=== PATIENT | male | born 1965 | race Caucasian/White ===

== ENCOUNTER 2019-09-03 23:31 | Emergency (ER) | payer SELFPAY ==
--- NOTE | 2019-09-03 23:37 | ED.URI ---
HPI - URI/Sore Throat General Chief Complaint: Upper Respiratory Infection Stated Complaint: sick Source: patient Mode of arrival: ambulatory Limitations: no limitations History of Present Illness HPI Narrative: Three day ago had soreness and felt swelling inside his throat (points to his trachea). In the last day that has improved but now he has congestion in his head, worse this evening. He's concerned this will get worse and then start to affect his COPD. The thought of this make's him anxious. He sparingly takes Xanax. Current bottle has lasted him since February with several tabs remaining. MD elicited complaint: cough and rhinorrhea Pertinent past history: COPD (exacerbation) Exacerbating factors: nothing Relieving factors: nothing Related Data Home Medications Medication Instructions Recorded Confirmed albuterol sulfate 2.5 mg CONTINUOUS NEBULIZATION PRN 09/03/19 09/03/19 PRN albuterol sulfate [Ventolin HFA] 2 puff INHALATION PRN PRN 09/03/19 09/03/19 alprazolam 0.25 mg PO PRN PRN 09/03/19 09/03/19 lisinopril-hydrochlorothiazide 2 tablet PO DAILY 09/03/19 09/03/19 Allergies Allergy/AdvReac Type Severity Reaction Status Date / Time No Known Allergies Allergy Verified 09/04/19 00:08 Review of Systems Constitutional: Constitutional: Reports no additional constitutional complaints ENT: Denies dysphagia Cardiovascular: Cardiovascular: Denies chest pain Respiratory: Respiratory: Denies dyspnea Gastrointestinal: Gastrointestinal: Denies abdominal pain PMFSH Past Medical History Medical History Arthritis of knee Cervical stenosis of spinal canal Hypertension Social History Social History Substance use: current Substance use type: marijuana Exam Narrative: Exam Narrative: Anxious, seems to prefer to stand. Const: General: no acute distress Orientation/consciousness: patient oriented x3 HENMT: General nose exam: Normal external nose present, Normal nares present and no nasal discharge noted Face and sinus: no sinus tenderness Mouth: Yes moist mucous membranes Other: Audible air flow constriction out of each nostril with inhalation Eyes: Conjunctivae: conjunctivae normal Neck: Neck: no lymphadenopathy Other: minor anterior neck tenderness. Resp: Auscultation: clear to auscultation bilaterally Cardio: Rate: regular rate Rhythm: regular rhythm Course Course Emergency Course: Pt. given assured his COPD is stable. Vital Signs Vital signs: Vital Signs Temperature 36.6 C 09/03/19 23:45 Pulse Rate 72 09/03/19 23:45 Respiratory Rate 09/03/19 23:45 Blood Pressure 145/85 H 09/03/19 23:45 Pulse Oximetry 98 09/03/19 23:45 Temperature 36.6 C 09/03/19 23:45 Pulse Rate 72 09/03/19 23:45 Respiratory Rate 09/03/19 23:45 Blood Pressure 145/85 H 09/03/19 23:45 Pulse Oximetry 98 09/03/19 23:45 MDM - URI/Sore Throat MDM Narrative Medical decision making narrative: Lower tracheal swelling by hx 3 days go. This has improved. This evening having head congestion which have elicited anxiety over having trouble breathing, exacerbation of COPD. Pt. assured there is no evidence of problems with COPD. [place] last [place] Xan[place] 02/2019 for 20 tablets. Given lorazepam 0.5 mg with #6 Xanax 0.25 tablets to get him to his appt. with his PCP in 5 days. Differential Diagnosis Differential diagnosis: Likely upper respiratory infection and other (anxiety) Discharge Plan Discharge Clinical Impression: Anxiety Upper respiratory infection Qualifiers: URI type: unspecified URI Qualified Code(s): J06.9 - Acute upper respiratory infection, unspecified Patient Disposition: Home, Self-Care Condition: Stable Instructions: Sinusitis (ED), Upper Respiratory Infection (ED) Additional Instructions: Irrigate sinuses with saline sinus
[2019-09-03 23:45] VITALS: BP 145/85; PULSE 72; RESP 20; TEMP 36.6; O2SAT 98
[2019-09-04] MEDS: LORAZEPAM 0.5 MG TABLET PO (00:11)
[2019-09-04 00:13] VITALS: BP 140/82; PULSE 88; RESP 18; O2SAT 98
== END 2019-09-04 00:15 | disposition home or self-care (01) ==
PROVIDERS: Emergency Provider Family Medicine; PCP Internal Medicine
DX: F41.9 Anxiety disorder, unspecified (principal); J06.9 Acute upper respiratory infection, unspecified
CPT/HCPCS: 99283; A9270

== ENCOUNTER → 2020-10-05 00:21 | Outpatient (CLI) | payer MEDICARE, SELFPAY ==
[2020-10-05 17:44] LABS: SARS-CoV-2 RNA PCR Negative
== END ==
PROVIDERS: PCP Family Medicine; Visit Provider Internal Medicine Gastroenterology
DX: Z01.812 Encounter for preprocedural laboratory examination (principal); Z20.822 Contact with and (suspected) exposure to COVID-19
CPT/HCPCS: C9803; U0003; U0005

== ENCOUNTER 2020-10-08 01:25 | Day surgery (SDC) | payer MEDICARE, SELFPAY ==
[2020-10-03 10:19] VITALS: BMI 26.6
[2020-10-08 10:05] VITALS: BP 126/80; PULSE 66; RESP 18; TEMP 37; O2SAT 99; BMI 27.2
[2020-10-08] MEDS: LACTATED RINGERS 1,000 ML 150 ML IV CONT (10:15)
--- NOTE | 2020-10-08 10:26 | WPDANESEPPF ---
Anes - Initial Pre Proc Eval Procedure: Operation Date: 10/08/20 10:45 Proposed Procedures p Esophagogastroduodenoscopy & Colonoscopy - Guilherme Strong MD Date/Time: 10/08/20 10:26 Surgeon: Guilherme Strong MD Pre Op Diagnosis: Hx of colon polyps, GERD Patient Data Age: 54 Gender: M Height: 5 ft 7 in Weight: 78.9 kg Last Vital Signs Temp 98.6 F 10/08/20 10:05 Pulse 66 10/08/20 10:05 Resp 18 10/08/20 10:05 BP 126/80 10/08/20 10:05 Pulse Ox 99 10/08/20 10:05 Allergies Allergy/AdvReac Type Severity Reaction Status Date / Time citalopram Allergy Severe panic Verified 10/08/20 10:04 attack Home Medications Medication Instructions Recorded Confirmed Type lisinopril 10 2 tablet PO DAILY #180 tablet 07/02/20 10/03/20 Rx mg-hydrochlorothiazide 12.5 mg tablet alprazolam 0.25 mg tablet 0.25 mg PO TID PRN #20 tablet 08/21/20 10/03/20 Rx albuterol sulfate 90 mcg/actuation 1 inh INHALATION Q4H PRN #8.5 g 09/26/20 10/03/20 Rx aerosol inhaler pantoprazole 40 mg tablet,delayed 40 mg PO QAM #30 tablet 10/03/20 10/08/20 Rx release Patient hx anesthesia problems: none Family hx anesthesia problems: none PMFSH Past Medical History Medical History (Updated 09/27/20 @ 09:30 by Guilherme Strong MD) Adenomatous colon polyp Arthritis of knee Cervical stenosis of spinal canal COPD (chronic obstructive pulmonary disease) Early satiety PADDY (generalized anxiety disorder) Hypertension Surgical History Surgical History H/O hernia repair History of throat surgery Family History Family History Father Lymphoma Social History Social History Smoking status: Never smoker Alcohol intake: current Substance use: current Substance use type: marijuana Other substance usage details: MEDICAL CARD- Living arrangements: with family 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 Spiritual care concerns: No Anes - Eval Final PreProcedure Day of Procedure 10/08/20 10:26 Patient weight: normal Heart: regular rate and rhythm Lungs: clear to auscultation Airway: Mallampati scale class II Neurological: alert and oriented Last oral intake: >/= 8 hours ASA classification: III Emergent: no Anesthetic plan: proceed Anesthesia type and monitoring: general GIVS and standard monitoring Informed Consent: The patient's anesthetic plan and its attendant risks and benefits were discussed with the patient/family/POA. Questions were solicited and answers provided to the satisfaction of the patient/family/POA.
--- NOTE | 2020-10-08 10:32 | WPDHPUPDATE1 ---
History and Physical Update Update Date/Time: 10/08/20 10:32 History and Physical has been reviewed, including an updated exam of the patient. There are NO changes in the patient's condition. Risks, benefits, and alternatives have been discussed and questions answered. Patient agrees to proceed with procedure.
[2020-10-08 11:21] VITALS: BP 98/64; PULSE 65; RESP 19; O2SAT 99
--- NOTE | 2020-10-08 11:22 | SUR.OPER ---
EGD START 1040, END 1044 COLONOSCOPY START 1050, END 1118
[2020-10-08 11:31] VITALS: BP 101/75; PULSE 65; RESP 18; O2SAT 98
[2020-10-08 11:41] VITALS: BP 136/67; PULSE 71; RESP 18; O2SAT 99
== END 2020-10-08 11:52 | disposition home or self-care (01) ==
PROVIDERS: PCP Family Medicine; Visit Provider Internal Medicine Gastroenterology
PROC: 0DJ08ZZ Inspection of Upper Intestinal Tract, Via Natural or Artificial Opening Endoscopic (ICD-10-PCS; CPT 43235; principal; 2020-10-08 10:45)
DX: Z12.11 Encounter for screening for malignant neoplasm of colon (principal); D12.0 Benign neoplasm of cecum; D12.3 Benign neoplasm of transverse colon; K63.5 Polyp of colon; K57.30 Diverticulosis of large intestine without perforation or abscess without bleeding; K64.8 Other hemorrhoids; K30 Functional dyspepsia; R14.0 Abdominal distension (gaseous); K44.9 Diaphragmatic hernia without obstruction or gangrene; K29.50 Unspecified chronic gastritis without bleeding; B96.81 Helicobacter pylori [H. pylori] as the cause of diseases classified elsewhere; K21.9 Gastro-esophageal reflux disease without esophagitis; R10.11 Right upper quadrant pain; R68.81 Early satiety
CPT/HCPCS: 45385; 45381; 43239; 88305; 88342; J2704; J7120

== ENCOUNTER 2020-11-07 13:59 | Outpatient (CLI) | payer MEDICARE, SELFPAY ==
[2020-11-10 15:40] LABS: H pylori Ag Stool Not Detected (Not Detected)
== END 2020-11-07 14:00 | disposition home or self-care (01) ==
LOC: CHSLAB 14:01
PROVIDERS: PCP Family Medicine; Visit Provider Nurse Practitioner Family
DX: A04.8 Other specified bacterial intestinal infections (principal)
CPT/HCPCS: 87338

== ENCOUNTER 2022-08-25 09:35 | Outpatient (RCR) | payer MEDICARE, SELFPAY ==
--- NOTE | 2022-08-25 09:42 | PTOPEVAL1 ---
Assessment and note entered by [facility]as Hand Evaluation Information Assessment Status Evaluation Diagnosis left MADAI Onset 08/04/22 Subjective Information Pt. reports that he underwent left MADAI on 08/04/22. He reports that he fell shortly after surgery, but underwent xray and everything was ok with the hip. He reports that he still has difficulty with putting on a sock and tying his shoe. He reports that he has some pain with walking, but it is mild. He reports that he does have a lot of stiffness after getting up in the morning. He states that he has returned to driving and is no longer using his cane. He reports that he was active before surgery. 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 He reports that his goal is to be able to walk normal. Reported Pain Level Pain Score 2: Self Report Assessment PT Clinical Summary Pt. is a 56 year old male who enters the clinic approximately 3-4 weeks post left MADAI. He presents with impaired ROM, impaired strength, impaired gait and functional decline. Continued treatment is indicated in order to improve these areas to allow for improved IADL performance. Plan of Care Interventions Gait Training,Manual Therapy,Neuro Re-education, Patient/Caregiver Educati,Therapeutic Activities, Therapeutic Exercise Treatment Frequency and 2x/week x 8 visits Duration These treatments will address the objective and functional deficits as defined above. The patient will be advanced safely and appropriately in order for the patient to progress towards his/her prior level of function. Additional exercises will be introduced and as well as a comprehensive home exercise program upon discharge, if needed, ?to ensure carryover of functional gains achieved in the clinic. This treatment plan has been reviewed and agreement upon by the patient.
== END 2022-08-25 17:23 | disposition home or self-care (01) ==
LOC: CHSPT 09:35
PROVIDERS: Visit Provider Orthopaedic Surgery
DX: Z47.1 Aftercare following joint replacement surgery (principal); M16.32 Unilateral osteoarthritis resulting from hip dysplasia, left hip; Z96.642 Presence of left artificial hip joint
CPT/HCPCS: 97110; 97161

== ENCOUNTER 2023-04-03 | Emergency (ER) | payer MEDICARE, SELFPAY ==
[2023-04-03 00:02] VITALS: BP 120/64; PULSE 70; RESP 20; O2SAT 100
--- NOTE | 2023-04-03 00:12 | ED.UPPEXIN ---
HPI - Extremity Injury (Upper) General Chief Complaint: Extremity Injury, Upper Stated Complaint: Upper Extremity Time Seen by Provider: 04/03/23 00:10 Source: patient Mode of arrival: ambulatory Limitations: no limitations History of Present Illness HPI narrative: 57-year-old male who presents with warm tender red right thumb, with no known injury started approximately a day or 2 ago and no fever chills no shortness of breath no chest pain no nausea vomiting. complaint: injury to: right and hand Onset (ago): day(s) Other Extremity Injury: Right: fingers ( thumb tenderness warmth and redness) Related Data Allergies Allergy/AdvReac Type Severity Reaction Status Date / Time citalopram Allergy Severe panic Verified 10/30/22 07:07 attack Review of Systems Review of Systems: All systems reviewed & are unremarkable except as noted in HPI and below PMFSH Past Medical History Medical History Adenomatous colon polyp Arthritis of knee Cervical stenosis of spinal canal COPD (chronic obstructive pulmonary disease) Early satiety PADDY (generalized anxiety disorder) Helicobacter pylori (H. pylori) Hypertension Surgical History Surgical History H/O hernia repair History of throat surgery Family History Family History Father Lymphoma Social History Social History Smoking status: Never smoker Alcohol intake: current Alcohol use details: Social use only. 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 care concerns: No Exam Const: General: healthy appearing Nutritional Appearance: well nourished Orientation/consciousness: patient oriented x3 Limitations: no limitations Neck: Neck: normal visual inspection and no lymphadenopathy Chest: Chest palpation & inspection: normal inspection of the chest Resp: Effort & Inspection: normal respiratory effort Auscultation: clear to auscultation bilaterally Cardio: Rate: regular rate Rhythm: regular rhythm GI: GI Palp: Yes Soft to palpation Back/Spine/Pelvis: Back: no CVA tenderness Skin: General skin exam: normal color Other: Warm tender and red erythematous right thumb no known injury a strong brisk radial pulse on the right with mild swelling Extrem: General: normal to inspection Psych: Mental Status: mental status grossly normal Affect: normal affect Course Course Emergency Course: patient received a dose of 60mg IM Toradol Reassessment of patient, pain level has improved advised patient to follow with his primary. Vital Signs Vital signs: Vital Signs Pulse Rate 70 04/03/23 00:02 Respiratory Rate 20 04/03/23 00:02 Blood Pressure 120/64 04/03/23 00:02 Pulse Oximetry 100 04/03/23 00:02 Oxygen Delivery Room Air 04/03/23 00:02 Pulse Rate 70 04/03/23 00:02 Respiratory Rate 20 04/03/23 00:02 Blood Pressure 120/64 04/03/23 00:02 Pulse Oximetry 100 04/03/23 00:02 Oxygen Delivery Room Air 04/03/23 00:02 Critical Care Time Critical Care Time Critical Care Time: No Discharge Plan Discharge Clinical Impression: Gout attack Qualifiers: Gout site: hand Gout etiology: unspecified cause Laterality: right Qualified Code(s): M10.9 - Gout, unspecified Patient Disposition: Home, Self-Care Condition: Stable Instructions: Antibiotic Form, Gout (ED) Additional Instructions: advised patient to take medicine as prescribed and to follow up with primary within the next 2 weeks further evaluation treatment. Prescriptions: New indomethacin 50 mg capsule
[2023-04-03] MEDS: KETOROLAC (*BKC) 60 MG/2 ML VIAL IM (00:30)
== END 2023-04-03 00:40 | disposition home or self-care (01) ==
PROVIDERS: Emergency Provider Emergency Medicine; PCP Family Medicine
DX: M10.9 Gout, unspecified (principal); J44.9 Chronic obstructive pulmonary disease, unspecified; I10 Essential (primary) hypertension
CPT/HCPCS: 96372; 99283; J1885

== ENCOUNTER 2023-05-15 19:52 | Emergency (ER) | payer MEDICARE, SELFPAY ==
--- NOTE | ~2023-05-15 | XR_ITS ---
XR wrist RT min 3V 05/15/2023 21:29 Indication: Right wrist pain Procedure: 4 views right wrist Comparison: No prior studies for comparison. Findings: There is an old healed scaphoid fracture. There is loose body lateral to the scaphoid. Ther e is an older ulnar styloid avulsion fracture. There is widening of the scapholunate distance hips. T here is polyarticular osteoarthritis of the carpal bones. No acute fracture or traumatic malalignment . Impression: 1: No acute bone or joint abnormality. Reviewed, dictated and finalized at location A. Impression: 1: No acute bone or joint abnormality.
[2023-05-15 20:06] VITALS: BP 141/75; PULSE 78; RESP 20; TEMP 36.6; O2SAT 99
[2023-05-15] MEDS: KETOROLAC 30 MG/ML VIAL (*BKC) 60 MG IM (20:34)
--- NOTE | 2023-05-15 21:07 | ED.WOUNDLAC ---
HPI - Wound/Laceration General Chief Complaint: Wound/Laceration Stated Complaint: Gout in R arm Source: patient Mode of arrival: ambulatory Limitations: no limitations History of Present Illness HPI narrative: Patient is a 57-year-old male with right hand / wrist recurrent gout. He gets tophi in the right wrist. He was here about a month ago and did not fill the medication. He does not see a primary doctor for this problem. Onset (ago): day(s) (3) Extremity Location: Right: wrist Place: home Context: other ( Acute on chronic problem) Associated symptoms: pain Treatments prior to arrival: cold therapy Related Data Allergies Allergy/AdvReac Type Severity Reaction Status Date / Time citalopram Allergy Severe panic Verified 10/30/22 07:07 attack Review of Systems Review of Systems: All systems reviewed & are unremarkable except as noted in HPI and below Constitutional: Constitutional: Reports no additional constitutional complaints Eyes: Eyes: Reports no additional eye complaints ENT: Reports system reviewed and no additional complaints, except as documented Cardiovascular: Cardiovascular: Reports no additional cardiovascular complaints Respiratory: Respiratory: Reports no additional respiratory complaints Gastrointestinal: Gastrointestinal: Reports no additional gastrointestinal complaints Genitourinary: Genitourinary: Reports no additional male genitourinary complaints Musculoskeletal: Musculoskeletal: Reports no additional musculoskeletal complaints Integumentary/Breasts: Skin/Breast: Reports system reviewed and no additional complaints, except as docu Neurologic: Reports system reviewed and no additional complaints, except as documented Psychiatric: Psychiatric: Reports no additional psychiatric complaints Endocrine: Endocrine: Reports no additional endocrine complaints Hematologic/Lymphatic: Hematologic/Lymphatic: Reports no additional hematologic/lymphatic complaints Allergic/Immunologic: Allergic/Immunologic: Reports no additional allergic/immunologic complaints PMFSH Past Medical History Medical History Adenomatous colon polyp Arthritis of knee Cervical stenosis of spinal canal COPD (chronic obstructive pulmonary disease) Early satiety PADDY (generalized anxiety disorder) Helicobacter pylori (H. pylori) Hypertension Surgical History Surgical History H/O hernia repair History of throat surgery Family History Family History Father Lymphoma Social History Social History Smoking status: Never smoker Alcohol intake: current Alcohol use details: Social use only. 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 care concerns: No Exam Const: General: healthy appearing Nutritional Appearance: well nourished Orientation/consciousness: patient oriented x3 HENMT: Head: normal to inspection Ears: external ears normal Face/Nose/Sinus: Normal external nose present Eyes: Conjunctivae: conjunctivae normal Pupils: Equal, round and reactive pupils present EOM: EOMs intact bilaterally Neck: Neck: normal visual inspection Chest: Chest palpation & inspection: normal inspection of the chest Resp: Effort & Inspection: normal respiratory effort Auscultation: clear to auscultation bilaterally, no crackles, no rales and no rhonchi Cardio: Rate: regular rate Rhythm: regular rhythm Heart sounds: no murmurs GI: Inspection: non-distended GI Palp: Yes Soft to palpation, No Tenderness to palpation present (GI), No Guarding due to palpation present (GI) and
[2023-05-15] MEDS: COLCHICINE 0.6 MG TABLET 1.2 MG PO (21:14)
[2023-05-15 21:16] VITALS: BP 138/79; PULSE 70; RESP 18; O2SAT 97
== END 2023-05-15 21:47 | disposition home or self-care (01) ==
PROVIDERS: Emergency Provider Emergency Medicine; PCP Family Medicine
DX: M1A.9XX1 Chronic gout, unspecified, with tophus (tophi) (principal); M25.531 Pain in right wrist; J44.9 Chronic obstructive pulmonary disease, unspecified; I10 Essential (primary) hypertension; F41.1 Generalized anxiety disorder; F12.90 Cannabis use, unspecified, uncomplicated; Z79.51 Long term (current) use of inhaled steroids
CPT/HCPCS: 73110; 96372; 99283; A9270; J1885

== ENCOUNTER 2023-09-25 22:15 | Emergency (ER) | payer MEDICARE, SELFPAY ==
[2023-09-25 22:18] VITALS: BP 121/90; PULSE 69; RESP 18; TEMP 36.8; O2SAT 96
--- NOTE | 2023-09-25 22:26 | ED.GENADULT ---
HPI - General Adult General Chief complaint: Extremity Problem,Nontraumatic Stated complaint: hand pain Time Seen by Provider: 09/25/23 22:20 History of Present Illness HPI narrative: Florian presented to the ED with bilateral hand pain getting worse for a couple days. He has severe pain in his left wrist that is keeping him from using it. It is also keeping him awake all night. No fevers, chills, nausea vomiting or systemic symptoms. It feels like previous gout flares. Related Data Allergies Allergy/AdvReac Type Severity Reaction Status Date / Time citalopram Allergy Severe panic Verified 09/25/23 22:20 attack Review of Systems Review of Systems: All systems reviewed & are unremarkable except as noted in HPI and below PMFSH Past Medical History Medical History Adenomatous colon polyp Arthritis of knee Cervical stenosis of spinal canal COPD (chronic obstructive pulmonary disease) Early satiety PADDY (generalized anxiety disorder) Helicobacter pylori (H. pylori) Hypertension Surgical History Surgical History H/O hernia repair History of throat surgery Family History Family History Father Lymphoma Social History Social History Smoking status: Never smoker Alcohol intake: current Alcohol use details: Social use only. 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 care concerns: No Exam Const: General: cooperative, healthy appearing, comfortable, no acute distress, well developed, alert, awake and Physically active Orientation/consciousness: oriented to person, oriented to place and oriented to time HENMT: Head: normal to inspection, normocephalic and atraumatic Ears: hearing grossly normal bilaterally and external ears normal Face/Nose/Sinus: Normal external nose present Eyes: General: appearance normal, both eyes and all related structures Periorbital: periorbital findings normal Sclera: sclerae normal Pupils: Equal, round and reactive pupils present Neck: Neck: normal visual inspection Chest: Chest palpation & inspection: normal inspection of the chest Resp: Effort & Inspection: normal respiratory effort, able to speak in complete sentences and no respiratory distress Skin: General skin exam: normal color and no rashes or lesions noted Neuro: General: oriented to person, oriented to place and oriented to time Cranial nerves: Yes Equal, round and reactive pupils present Extrem: General: normal to inspection Other: both hands swollen and TTP bilaterally. Left wrist is the most severe. Course Course Emergency Course: Given toradol and prednisone. Physical exam, patients personal history is most consistent with a gout flare. Vital Signs Vital signs: Vital Signs Temperature 98.2 F 09/25/23 22:18 Pulse Rate 69 09/25/23 22:18 Respiratory Rate 18 09/25/23 22:18 Blood Pressure 121/90 09/25/23 22:18 Pulse Oximetry 96 09/25/23 22:18 Oxygen Delivery Room Air 09/25/23 22:18 Temperature 98.2 F 09/25/23 22:18 Pulse Rate 69 09/25/23 22:18 Respiratory Rate 18 09/25/23 22:18 Blood Pressure 121/90 09/25/23 22:18 Pulse Oximetry 96 09/25/23 22:18 Oxygen Delivery Room Air 09/25/23 22:18 Medical Decision Making Vital Signs Vital Signs: Vital Signs Temperature 98.2 F 09/25/23 22:18 Pulse Rate 69 09/25/23 22:18 Respiratory Rate 18 09/25/23 22:18 Blood Pressure 121/90 09/25/23 22:18 Pulse Oximetry 96 09/25/23 22:18 Oxygen Delivery Room Air 09/25/23 22:18 Temperature 98.2 F
[2023-09-25] MEDS: KETOROLAC 30 MG/ML VIAL (*BKC) IM (22:34)
[2023-09-25] MEDS: predniSONE 40 MG, predniSONE 10 MG 50 MG PO (22:34)
== END 2023-09-25 22:55 | disposition home or self-care (01) ==
LOC: CHSED 22:42
PROVIDERS: Emergency Provider Family Medicine; PCP Family Medicine
DX: M10.9 Gout, unspecified (principal); J44.9 Chronic obstructive pulmonary disease, unspecified; I10 Essential (primary) hypertension
CPT/HCPCS: 96372; 99283; J1885; J7512

== ENCOUNTER 2023-09-27 22:11 | Emergency (ER) | payer MEDICARE, SELFPAY ==
[2023-09-27 22:11] VITALS: BP 125/84; PULSE 74; RESP 20; TEMP 36.6; O2SAT 98
--- NOTE | 2023-09-27 22:24 | ED.GENADULT ---
HPI - General Adult General Chief complaint: Extremity Problem,Nontraumatic Stated complaint: hand pain Time Seen by Provider: 09/27/23 22:14 Source: patient Mode of arrival: ambulatory Limitations: no limitations History of Present Illness HPI narrative: 57-year-old white male with history of gout seen in the emergency room 3 days ago given Toradol and prednisone with a prescription for [place] and a decreasing doses of prednisone which he did not feel yesterday or today. He is here for another shot and some more prednisone complains of recurrence of his left wrist pain. Patient says that he quit alcohol about a year ago he has had attacks pretty much constantly for the last 8 months. He is on lisinopril hydrochlorothiazide. He has been to the emergency room before when he forgot the get his medicines filled. Says he is taking Naprosyn at home and did go out get his [place] and prednisone last 2 days. Complains of more pain in his left wrist denies any other joint pain. He is eating drinking voiding and stooling fine walking talking seeing hearing fine no other swelling besides his left wrist lumps or bumps dizziness or lightheadedness bleeding or bruising or any other complaints Related Data Allergies Allergy/AdvReac Type Severity Reaction Status Date / Time citalopram Allergy Severe panic Verified 09/27/23 22:26 attack Review of Systems Review of Systems: All systems reviewed & are unremarkable except as noted in HPI and below PMFSH Past Medical History Medical History Adenomatous colon polyp Arthritis of knee Cervical stenosis of spinal canal COPD (chronic obstructive pulmonary disease) Early satiety PADDY (generalized anxiety disorder) Helicobacter pylori (H. pylori) Hypertension Surgical History Surgical History H/O hernia repair History of throat surgery Family History Family History Father Lymphoma Social History Social History Smoking status: Never smoker Alcohol intake: current Alcohol use details: Social use only. 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 care concerns: No Exam Narrative: White male patient with no apparent distress.? Head normocephalic, atraumatic.? Eyes conjunctiva pink sclera nonicteric.? Extraocular movements are intact.? Ears externally normal.? Oropharynx is clear with moist mucous membranes without exudates.? Neck is supple nontender no lymphadenopathy.? Back is nontender.? Lungs are clear.? Heart is regular rate and rhythm without murmurs gallops or rubs.? Chest wall nontender.? Back is nontender. Abdomen is soft and nontender no hepatosplenomegaly or masses no CVA tenderness no abdominal bruits.? Extremities left wrist volar swelling mild tenderness radial pulses +2 full range of motion his wrist. No increased warmth.? Skin is warm and dry without rashes or lesions.? Neurological patient is alert and oriented x4.? Motor and sensory grossly intact.? Gait is normal. Course Vital Signs Vital signs: Vital Signs Temperature 36.6 C 09/27/23 22:11 Pulse Rate 74 09/27/23 22:11 Respiratory Rate 20 09/27/23 22:11 Blood Pressure 125/84 09/27/23 22:11 Pulse Oximetry 98 09/27/23 22:11 Oxygen Delivery Room Air 09/27/23 22:11 Temperature 36.6 C 09/27/23 22:11 Pulse Rate 74 09/27/23 22:11 Respiratory Rate 20 09/27/23 22:11 Blood Pressure 125/84 09/27/23 22:11 Pulse Oximetry 98 09/27/23 22:11 Oxygen Delivery Room Air 09/27/23 22:11 Medical Decision Making MDM Narrative Medical de
[2023-09-27] MEDS: predniSONE 20 MG TABLET 60 MG PO (22:34)
[2023-09-27] MEDS: KETOROLAC (*BKC) 60 MG/2 ML VIAL IM (22:35)
== END 2023-09-27 23:12 | disposition home or self-care (01) ==
PROVIDERS: Emergency Provider Emergency Medicine; PCP Family Medicine
DX: M10.9 Gout, unspecified (principal); I10 Essential (primary) hypertension; J44.9 Chronic obstructive pulmonary disease, unspecified; Z91.148 Patient's other noncompliance with medication regimen for other reason
CPT/HCPCS: 96372; 99283; J1885; J7512

== ENCOUNTER 2023-09-29 09:16 | Outpatient (CLI) | payer MEDICARE, SELFPAY ==
[2023-09-29 09:37] LABS: Basophils Absolute Auto 0.02 K/mm3 (0.00-0.10); Basophils Percent Auto 0.2 % (0.0-1.0); Eosinophils Absolute Auto 0.02 K/mm3 (0.02-0.50); Eosinophils Percent Auto 0.2 % (1.0-6.0); Hematocrit 37.2 % (40.0-54.0); Hemoglobin 12.2 g/dL (14.0-18.0); Immature Granulocyte Absolute 0.06 K/mm3 (0.00-0.00); Immature Granulocyte Percent A 0.5 % (0.0-0.0); Lymphocytes Absolute Auto 1.92 K/mm3 (1.10-4.50); Mean Corpuscular HGB Conc 32.8 g/dL (32-36); Mean Corpuscular Volume 91.6 fL (78.0-102.0); Mean Platelet Volume 9.8 fl (8.7-11.0); Monocytes Absolute Auto 1.05 K/mm3 (0.10-0.90); Monocytes Percent Auto 8.8 % (2.0-11.0); Neutrophils Absolute Auto 8.91 K/mm3 (1.70-7.20); Neutrophils Percent Auto 74.3 % (50.0-70.0); Platelet Count Result 320 K/mm3 (150-420); Red Blood Count 4.06 M/mm3 (4.70-6.10); Red Cell Distribution Width 12.7 % (11.6-14.4)
[2023-09-29 10:00] LABS: Alanine Aminotransferase 20 U/L (16-63); Albumin Level 3.4 g/dL (3.4-5.0); Alkaline Phosphatase 63 U/L (46-116); Anion Gap 11 mmol/L (8-16); Aspartate Amino Transferase 12 U/L (15-37); Bilirubin,Total 0.5 mg/dL (0.00-1.00); Blood Urea Nitrogen 29 mg/dL (7-18); Calcium 8.8 mg/dL (8.5-10.1); Carbon Dioxide 27 mmol/L (21-32); Chloride 103 mmol/L (98-108); Cholesterol 181 mg/dL (0-200); Estimated Glomerular Filt Rate > 60; Glucose 112 mg/dL (70-99); HDL Direct 60 mg/dL (40-60); LDL Cholesterol Calculated 106 mg/dL (<130); Osmolality Calculated 298 mOsm/kg (285-295); Potassium 4.4 mmol/L (3.5-5.1); Sodium 141 mmol/L (136-145); Total Protein 6.7 g/dL (6.4-8.2); Triglycerides 73 mg/dL (0-150); Uric Acid 5.9 mg/dL (3.5-7.2)
== END 2023-09-29 09:17 | disposition home or self-care (01) ==
LOC: CHSLAB 09:18
PROVIDERS: PCP Family Medicine; Visit Provider Family Medicine
DX: M10.9 Gout, unspecified (principal); I10 Essential (primary) hypertension
CPT/HCPCS: 36415; 80053; 80061; 84550; 85025

== ENCOUNTER 2023-10-29 05:44 | Emergency (ER) | payer MEDICARE, SELFPAY ==
[2023-10-29 05:47] VITALS: BP 151/90; PULSE 72; RESP 18; TEMP 36.6; O2SAT 97
--- NOTE | 2023-10-29 05:51 | ED.EXTPRO ---
HPI - Extremity Problem General Chief complaint: Extremity Problem,Nontraumatic Stated complaint: gout pain Time Seen by Provider: 10/29/23 05:51 Source: patient Mode of arrival: ambulatory Limitations: no limitations History of Present Illness HPI Narrative: 58-year-old male with a history of arthritis, cervical canal stenosis, gout presents to the ER with -- flare-up of his gouty attack. He has had a history of podagra a while ago. He has a recurrent right wrist swelling and pain. He has had involvement of the left wrist but his attacks usually involve right wrist. 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 He had blood work done last month which revealed normal renal functions and normal uric acid levels. He had an x-ray of the wrist which revealed findings suggestive of osteoarthritis with a prior fractured ulnar styloid and scaphoid with scapholunate space widening. no changes suggestive of gout pain noted. He currently has right wrist pain with swelling. He has decreased range of motion. No recent trauma. MD Complaint: joint swelling and joint paint Onset (ago): day(s) ( One day) Pain Consistency: constant Location: right Severity scale (1-10): 9 Quality: aching Radiation: none Relieving factors: nothing Associated symptoms: denies other symptoms Related Data Home Medications Medication Instructions Recorded Confirmed albuterol sulfate 90 mcg/actuation See Rx Instructions .Route .COMPLEX 10/29/23 11/01/23 aerosol inhaler (ProAir HFA) lisinopril 20 mg tablet (Zestril) 20 mg PO DAILY 10/29/23 11/01/23 Allergies Allergy/AdvReac Type Severity Reaction Status Date / Time citalopram Allergy Severe panic Verified 11/01/23 16:33 attack meloxicam AdvReac Anxiety Verified 11/01/23 16:33 Review of Systems Review of Systems: All systems reviewed & are unremarkable except as noted in HPI and below Constitutional: Constitutional: Reports as per HPI and Reports no additional constitutional complaints Eyes: Eyes: Reports as per HPI and Reports no additional eye complaints ENT: Reports system reviewed and no additional complaints, except as documented and Reports as per HPI Cardiovascular: Cardiovascular: Reports as per HPI and Reports no additional cardiovascular complaints Respiratory: Respiratory: Reports as per HPI and Reports no additional respiratory complaints Gastrointestinal: Gastrointestinal: Reports as per HPI and Reports no additional gastrointestinal complaints Musculoskeletal: Musculoskeletal: Reports no additional musculoskeletal complaints and Reports as per HPI Integumentary/Breasts: Skin/Breast: Reports system reviewed and no additional complaints, except as docu and Reports as per HPI Neurologic: Reports system reviewed and no additional complaints, except as documented and Reports as per HPI Psychiatric: Psychiatric: Reports no additional psychiatric complaints and Reports as per HPI Endocrine: Endocrine: Reports no additional endocrine complaints and Reports as per HPI Hematologic/Lymphatic: Hematologic/Lymphatic: Reports no additional hematologic/lymphatic complaints and Reports as per HPI Allergic/Immunologic: Allergic/Immunologic: Reports no additional allergic/immunologic complaints and Reports as per HPI FOR[facility]LY [facility] Past Medical History Medical History Adenomatous colon polyp Arthritis of knee Cervical stenosis of spinal canal COPD (chronic obstructive pulmonary disease) Early satiety PADDY (generalized anxiety disorder) Helicobacter pylori (H. pylori) Hypertension Surgical History Surgical History H/O hernia repair History of throat surgery Family History Family History Father Lymphoma Social History Social History Smoking status:
[2023-10-29] MEDS: methylPREDNISolone SOD SUCC 125 MG VIAL 40 MG IM (06:17)
[2023-10-29] MEDS: KETOROLAC 30 MG/ML VIAL (*BKC) IM (06:17)
--- NOTE | 2023-10-29 06:33 | PC.NURSE ---
DR. GIFFORD AT BEDSIDE SPEAKING WITH PATIENT REGARDING DIAGNOSIS, MEDICATION PRESCRIPTION AND PLAN OF CARE.
== END 2023-10-29 07:02 | disposition home or self-care (01) ==
LOC: CHSED 06:38
PROVIDERS: Emergency Provider Internal Medicine Critical Care Medicine; PCP Family Medicine
DX: M19.031 Primary osteoarthritis, right wrist (principal); J44.9 Chronic obstructive pulmonary disease, unspecified; I10 Essential (primary) hypertension; F12.90 Cannabis use, unspecified, uncomplicated; Z79.51 Long term (current) use of inhaled steroids; F41.1 Generalized anxiety disorder
CPT/HCPCS: 96372; 99284; J1885; J2919

== ENCOUNTER 2023-11-01 16:27 | Emergency (ER) | payer MEDICARE, SELFPAY ==
[2023-11-01 16:27] VITALS: BP 164/104; PULSE 56; RESP 18; TEMP 36.3; O2SAT 98
--- NOTE | 2023-11-01 16:51 | ED.GENADULT ---
HPI - General Adult General Chief complaint: Extremity Injury, Upper Stated complaint: pain in both wrists & thumbs Time Seen by Provider: 11/01/23 16:32 History of Present Illness HPI narrative: The patient is a 58-year-old male with a history of arthritis, cervical canal stenosis, gout who presents to the ER with pain in both wrists, left > right, at the thenar eminences bilaterally. He has had recurrent wrist swelling and pain over the past six months, and has been seen in the ED for the same, most recently 10/29/2023, at which time he received TORADOL and SOLU-MEDROL IM, with improvement. He now returns due to continued pain in both wrists. He had been prescribed colchicine for this in the past but his uric acid level was normal so this was stopped. History of podagra in the past (Right Knee, Right Great Toe) but not currently. The steroids have improved his symptoms. He is worried about carpal tunnel. He has decreased range of motion of both wrists with decreased cw operator strength bilaterally.? No recent trauma. He has tingling sensations in both hands. He is unable to sleep well at night 2/2 pain in both wrists. 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 Related Data Home Medications Medication Instructions Recorded Confirmed albuterol sulfate 90 mcg/actuation See Rx Instructions .Route .COMPLEX 10/29/23 11/01/23 aerosol inhaler (ProAir HFA) lisinopril 20 mg tablet (Zestril) 20 mg PO DAILY 10/29/23 11/01/23 Allergies Allergy/AdvReac Type Severity Reaction Status Date / Time citalopram Allergy Severe panic Verified 11/01/23 16:33 attack meloxicam AdvReac Anxiety Verified 11/01/23 16:33 Review of Systems Review of Systems: All systems reviewed & are unremarkable except as noted in HPI and below Constitutional: Constitutional: Denies chills, Denies excessive sweating, Denies fatigue, Denies fever(s) and Denies headache(s) Eyes: Eyes: Denies change in vision and Denies photophobia ENT: Denies dysphagia, Denies dizziness, Denies headache(s), Denies lip swelling, Denies nasal congestion, Denies sore throat and Denies tongue swelling Cardiovascular: Cardiovascular: Denies chest pain, Denies syncope, Denies rapid heart rate and Denies dyspnea Respiratory: Respiratory: Denies cough, Denies dyspnea and Denies wheezing Gastrointestinal: Gastrointestinal: Denies abdominal pain, Denies constipation, Denies dysphagia, Denies diarrhea, Denies nausea and Denies vomiting Genitourinary: Genitourinary: Denies hematuria, Denies dysuria, Denies urinary frequency and Denies urinary urgency Musculoskeletal: Musculoskeletal: Denies back pain, Denies myalgias, Reports arthralgias (both wrists/hands), Reports joint swelling (both wrists) and Denies numbness Integumentary/Breasts: Skin/Breast: Denies pruritus, Denies erythema and Denies rash Neurologic: Denies confusion, Denies dizziness, Denies syncope, Denies headache(s), Denies focal weakness and Denies numbness Psychiatric: Psychiatric: Denies anxiety and Denies confusion Endocrine: Endocrine: Denies excessive sweating and Denies fatigue Hematologic/Lymphatic: Hematologic/Lymphatic: Denies easy bleeding and Denies easy bruising Allergic/Immunologic: Allergic/Immunologic: Denies lip swelling, Denies tongue swelling and Denies wheezing PMFSH Past Medical History Medical History Adenomatous colon polyp Arthritis of knee Cervical stenosis of spinal canal COPD (chronic obstructive pulmonary disease) Early satiety PADDY (generalized anxiety disorder) Helicobacter pylori (H. pylori) Hypertension Surgical History Surgical History H/O hernia repair History of throat surgery Family History Family History Father Lymphoma Social History Social History (Reviewed 11/01/23 @ 16:56 by He Gerard
[2023-11-01] MEDS: methylPREDNISolone SOD SUCC 125 MG VIAL IM (17:46)
[2023-11-01] MEDS: KETOROLAC (*BKC) 60 MG/2 ML VIAL IM (17:46)
[2023-11-01 18:20] VITALS: BP 149/89; PULSE 99; RESP 20; TEMP 37.2; O2SAT 95
== END 2023-11-01 18:20 | disposition home or self-care (01) ==
LOC: CHSED 17:12
PROVIDERS: Emergency Provider Emergency Medicine; PCP Family Medicine
DX: M25.532 Pain in left wrist (principal); M25.531 Pain in right wrist; M19.032 Primary osteoarthritis, left wrist; M19.031 Primary osteoarthritis, right wrist; J44.9 Chronic obstructive pulmonary disease, unspecified; I10 Essential (primary) hypertension; F41.1 Generalized anxiety disorder; F12.90 Cannabis use, unspecified, uncomplicated; Z79.51 Long term (current) use of inhaled steroids
CPT/HCPCS: 96372; 99284; J1885; J2919